=== PATIENT | female | born 1980 | race Hispanic/Latino ===

== ENCOUNTER 2023-02-06 06:46 | Day surgery (SDC) | payer MEDICAID ==
[2023-01-31 12:00] LABS: BASOPHILS # (AUTO) 0.02 K/uL (0.00-0.20); BASOPHILS % (AUTO) 0.3 % (0.0-5.0); EOSINOPHILS # (AUTO) 0.03 K/uL (0.00-0.70); EOSINOPHILS % (AUTO) 0.4 % (0.0-8.0); HEMATOCRIT 39.8 % (36-48); IMMATURE GRANULOCYTE ABSOLUTE 0.02 K/uL (0-1); LYMPHOCYTES # (AUTO) 2.3 K/uL (1.0-4.8); LYMPHOCYTES % (AUTO) 32.9 % (21.0-51.0); MEAN CORPUSCULAR HEMOGLOBIN 32.1 pg (27.0-33.0); MEAN CORPUSCULAR HGB CONC 34.4 g/dL (32.0-36.0); MEAN CORPUSCULAR VOLUME 93.2 fL (79-99); MONOCYTES # (AUTO) 0.5 K/uL (0.1-1.0); MONOCYTES % (AUTO) 7.4 % (3.0-13.0); NEUTROPHILS % (AUTO) 58.7 % (40.0-77.0); PLATELET COUNT (AUTO) 247 K/uL (130-400); RED BLOOD CELL COUNT(AUTO) 4.27 MIL/uL (4.00-5.50); RED CELL DISTRIBUTION WIDTH 12.6 % (11.0-15.5); WHITE BLOOD COUNT (AUTO) 6.9 K/uL (4.8-10.8)
[2023-01-31 12:09] LABS: APPEARANCE,URINE CLEAR (CLEAR); BILIRUBIN,URINE NEGATIVE (NEGATIVE); COLOR,URINE LIGHT-YELLOW (YELLOW); GLUCOSE, URINE (UA) NEGATIVE (NEGATIVE); KETONES,URINE NEGATIVE (NEGATIVE); LEUKOCYTE ESTERASE ,URINE 25 Leu/uL (NEGATIVE); NITRATE,URINE NEGATIVE (NEGATIVE); OCCULT BLOOD,URINE NEGATIVE (NEGATIVE); PROTEIN,URINE NEGATIVE (NEGATIVE); UROBILINOGEN,URINE 0.2 mg/dL (0.2-1.0)
[2023-01-31 12:20] LABS: INR < 0.93 (0.85-1.15); PROTHROMBIN TIME 10.5 SEC (9.6-11.6)
[2023-01-31 12:22] LABS: PARTIAL THROMBOPLASTIN TIME 31.2 SEC (26.3-35.5)
[2023-01-31 12:27] LABS: CREATININE 0.9 mg/dL (0.5-1.5); POTASSIUM 3.9 mmol/L (3.5-5.1)
[2023-01-31 12:32] LABS: ADD UA MICROSCOPIC YES
[2023-01-31 12:43] VITALS: BP 124/65; PULSE 77; RESP 19
[2023-01-31 13:28] LABS: RBC,URINE 0-1 /HPF (0-1); SQUAMOUS EPITHELIAL CELL,UR FEW /HPF (0-2)
[~2023-02-06] VITALS: Ht 165.1 cm; Wt 88.1 kg
[2023-02-06] VITALS (18 sets, daily range): BP systolic 104–135; BP diastolic 59–85; PULSE 70–98; RESP 15–19
[~2023-02-06 06:46] MED LIST: BENTROPINE PO; BUPR100T13 PO; DOXE25CA3 PO; HYDROXYPAM PO; RISP4TAB73 PO
[2023-02-06] MEDS ORDERED: CEFAZOLIN SODIUM 2 GM VIAL ONE (07:34)
[2023-02-06] MEDS ORDERED: GENTAMICIN 80 MG/NS 100 ML PB 100 ML IV ONE (07:34)
[2023-02-06] MEDS ORDERED: LACTATED RINGERS 1000ML 1,000 ML IV ONE (07:34)
[2023-02-06] MEDS ORDERED: FENTANYL CITRATE PF 50 MCG/1 ML 5ML AMP IV ONE ×2 (10:27→11:29)
[2023-02-06] MEDS ORDERED: MIDAZOLAM HCL 1 MG/ML 5ML VIAL ONE (10:30)
[2023-02-06] MEDS ORDERED: KETAMINE 50MG/ML SYRINGE 50 MG/ML DISP.SYRIN ONE (10:31)
[2023-02-06] MEDS ORDERED: CEFAZOLIN SODIUM 1 GM VIAL ONE (10:44)
[2023-02-06] MEDS ORDERED: LIDOCAINE 2%-EPI 1:200,000 20 ML VIAL IJ ONE ×2 (10:45→10:50)
[2023-02-06] MEDS ORDERED: ESTROGENS,CONJUGATED 0.625 MG/GM 42.5 GM VAG CRM VG ONE ×2 (10:46→10:54)
[2023-02-06] MEDS ORDERED: CEFAZOLIN SODIUM 2 GM VIAL IVPB ONE (10:52)
[2023-02-06] MEDS ORDERED: CEFAZOLIN SODIUM 1 GM VIAL IVPB ONE (10:53)
[2023-02-06] MEDS ORDERED: SUCCINYLCHOLINE 200MG/10ML SYR ONE (11:22)
[2023-02-06] MEDS ORDERED: LIDOCAINE PF 100MG/5ML (2%) SYRINGE 5ML ONE (11:22)
[2023-02-06] MEDS ORDERED: DEXAMETHASONE SOD PHOSPHATE 10MG/ML 1ML VIAL ONE (11:22)
[2023-02-06] MEDS ORDERED: PROPOFOL 10 MG/ML 20ML VIAL IV ONE (11:23)
[2023-02-06] MEDS ORDERED: NEOSTIGMINE 5MG/5ML SYR IV ONE (11:23)
[2023-02-06] MEDS ORDERED: GLYCOPYRROLATE 1 MG/5 ML SYRINGE ONE (11:23)
[2023-02-06] MEDS ORDERED: ONDANSETRON 4MG INJ ONE (11:23)
[2023-02-06] MEDS ORDERED: ROCURONIUM 10MG/1ML SYR 10 MG/ML ML ONE (11:24)
[2023-02-06] MEDS ORDERED: MEPERIDINE-PF 25 MG/ML SYG ONE (11:38)
[2023-02-06] MEDS ORDERED: KETOROLAC 30MG VIAL (30MG/ML) ONE (11:38)
[2023-02-06] MEDS ORDERED: SUGAMMADEX SODIUM 200 MG/2 ML VIAL IV ONE (11:57)
== END 2023-02-06 13:45 | disposition home or self-care (01) ==
LOC: DAH 06:46
PROVIDERS: ATTEND Urology
DX: N39.3 Stress incontinence (female) (male) (principal); R39.198 Other difficulties with micturition; F32.A Depression, unspecified; F20.9 Schizophrenia, unspecified; E66.9 Obesity, unspecified; Z79.899 Other long term (current) drug therapy; Z79.01 Long term (current) use of anticoagulants; Z98.51 Tubal ligation status
CPT/HCPCS: 80048; 84703; 85025; 85610; 85730; 87088; 81001; 36415; 57288; A6260; A4663; J7030; A4215 ×2; A4452; A4344; C1771; J7120; J3010 ×2; J0690 ×4; J0330; J3490 ×6; J1100; J2710; J2250; J2405; J1885; J2175; J1580; A4649; A4930; A4223; A4222; A4221; A4600; J2001; J2704

== ENCOUNTER → 2023-05-27 | Outpatient (CLI) | payer MEDICAID | END | disposition home or self-care (01) | LOC: RAH 16:29 | PROVIDERS: ATTEND Internal Medicine Gastroenterology | DX: R10.84 Generalized abdominal pain (principal); R11.2 Nausea with vomiting, unspecified | CPT/HCPCS: 74018 ==

== ENCOUNTER → 2023-07-25 | Outpatient (CLI) | payer MEDICAID | END | disposition home or self-care (01) | LOC: RAH 07-21 07:01 | PROVIDERS: ATTEND Internal Medicine Gastroenterology | DX: R14.0 Abdominal distension (gaseous) (principal); R11.2 Nausea with vomiting, unspecified | CPT/HCPCS: 78264; A9541 ==

== ENCOUNTER → 2023-08-19 | Outpatient (CLI) | payer MEDICAID ==
[~2023-08-19] MED LIST changes: -RISP4TAB73 PO; +RISP4TAB94 PO
== END | disposition home or self-care (01) ==
LOC: RAH 09:52
PROVIDERS: ATTEND Internal Medicine Gastroenterology
DX: K44.9 Diaphragmatic hernia without obstruction or gangrene (principal); R10.84 Generalized abdominal pain; K31.89 Other diseases of stomach and duodenum
CPT/HCPCS: 74240

== ENCOUNTER → 2023-11-12 | Outpatient (CLI) | payer MEDICAID ==
[~2023-11-12] MED LIST changes: +IOHEXOL 350 MG/ML 100ML INFUS..BTL IV ONE
== END | disposition home or self-care (01) ==
LOC: RAH 09:10
PROVIDERS: ATTEND Internal Medicine Gastroenterology
DX: N32.89 Other specified disorders of bladder (principal); M47.815 Spondylosis without myelopathy or radiculopathy, thoracolumbar region; R10.30 Lower abdominal pain, unspecified; I70.90 Unspecified atherosclerosis; Z98.82 Breast implant status
CPT/HCPCS: 74178; Q9967

== ENCOUNTER 2024-03-04 09:36 | Inpatient (IN) | payer MEDICAID ==
[2024-03-01 12:49] LABS: BASOPHILS # (AUTO) 0.01 K/uL (0.00-0.20); BASOPHILS % (AUTO) 0.2 % (0.0-5.0); HEMATOCRIT 39.8 % (36-48); IMMATURE GRANULOCYTE ABSOLUTE 0.01 K/uL (0-1); LYMPHOCYTES # (AUTO) 1.9 K/uL (1.0-4.8); LYMPHOCYTES % (AUTO) 30.7 % (21.0-51.0); MEAN CORPUSCULAR HEMOGLOBIN 33.4 pg (27.0-33.0); MEAN CORPUSCULAR HGB CONC 33.7 g/dL (32.0-36.0); MEAN CORPUSCULAR VOLUME 99.3 fL (79-99); MONOCYTES # (AUTO) 0.4 K/uL (0.1-1.0); MONOCYTES % (AUTO) 5.5 % (3.0-13.0); NEUTROPHILS % (AUTO) 63.4 % (40.0-77.0); PLATELET COUNT (AUTO) 208 K/uL (130-400); RED BLOOD CELL COUNT(AUTO) 4.01 MIL/uL (4.00-5.50); RED CELL DISTRIBUTION WIDTH 13.2 % (11.0-15.5); WHITE BLOOD COUNT (AUTO) 6.3 K/uL (4.8-10.8)
[2024-03-01 13:05] LABS: CREATININE 0.8 mg/dL (0.5-1.0); POTASSIUM 4.6 mmol/L (3.5-5.1)
[2024-03-01 13:42] VITALS: BP 115/61; PULSE 86; RESP 19; TEMP 97.9
[~2024-03-04] VITALS: Ht 165.1 cm; Wt 78.0 kg
[2024-03-04] VITALS (20 sets, daily range): BP systolic 110–141; BP diastolic 62–91; PULSE 74–98; RESP 15–20; TEMP 96.4–98.7; O2SAT 98
[~2024-03-04 09:36] MED LIST changes: +ATOR10TA69 PO; -BENTROPINE PO; +BENZ1TAB83 PO; -BUPR100T13 PO; +CLON1TAB12 PO; -DOXE25CA3 PO; -HYDROXYPAM PO; +IBUP-2077 PO; -IOHEXOL 350 MG/ML 100ML INFUS..BTL IV ONE; +OLAN15TA31 PO; +PERP8TAB6 PO; -RISP4TAB94 PO; +TERB250T89 PO
[2024-03-04] MEDS: ceFAZolin SODIUM 2 GM VIAL ONE (12:32)
[2024-03-04] MEDS: LACTATED RINGERS 1000ML 1,000 ML IV ONE (12:32)
[2024-03-04] MEDS ORDERED: BUPIvacaine/PF 0.25% 30ML VIAL IJ ONE (13:47)
[2024-03-04] MEDS ORDERED: FENTanyl CITRate PF 50 MCG/1 ML 2ML VIAL ONE (13:48)
[2024-03-04] MEDS ORDERED: MIDAZOLAM HCL 1 MG/ML 5ML VIAL ONE (13:48)
[2024-03-04] MEDS ORDERED: ketaMINE 50MG/ML SYRINGE 50 MG/ML DISP.SYRIN ONE (13:49)
[2024-03-04] MEDS ORDERED: rocuRONium bROMide 10MG/1ML 5ML VL ONE ×2 (13:50→14:33)
[2024-03-04] MEDS ORDERED: ondanSETRON 4MG INJ ONE (13:50)
[2024-03-04] MEDS ORDERED: proPOFol 10 MG/ML 20ML VIAL IV ONE (13:50)
[2024-03-04] MEDS ORDERED: LIDOCAINE PF 100MG/5ML (2%) SYRINGE 5ML ONE (13:50)
[2024-03-04] MEDS: ceFAZolin SODIUM 2 GM VIAL IVPB ONE (14:00)
[2024-03-04] MEDS ORDERED: GLYCOPYRROLATE 0.2 MG/ML 5 ML VIAL ONE (15:03)
[2024-03-04] MEDS ORDERED: ondanSETRON 4MG INJ IVP PRN (15:30)
[2024-03-04] MEDS ORDERED: PROCHLORPERAZINE 10MG/2ML INJ IV PRN (15:30)
[2024-03-04] MEDS: ENOXAPARIN SODIUM 30 MG/0.3 ML SQ SCH (15:30)
[2024-03-04] MEDS: FENTanyl CITRate PF 50 MCG/1 ML 2ML VIAL ONE (15:48)
[2024-03-04] MEDS: MEPERIDINE-PF 25 MG/ML SYG ONE (15:51)
[2024-03-04] MEDS: LACTATED RINGERS 1000ML 1,000 ML IV SCH (17:47)
[2024-03-04] MEDS: ketOROlac 30MG VIAL (30MG/ML) IV PRN (17:47)
[2024-03-04] MEDS: hydroMORPHone 1 MG INJ IVP PRN (19:18)
[2024-03-04] MEDS: FAMOTIDINE 20MG VIAL IV SCH (20:17)
[2024-03-04] MEDS: HYDROcod/acetaMINOPHEN 7.5/325 MG 15 ML UDCUP PO PRN (20:36)
[2024-03-05 04:00] VITALS: BP 119/79; PULSE 81; RESP 16; TEMP 98
[2024-03-05 08:00] VITALS: BP 116/78; PULSE 88; RESP 18; TEMP 97.4; O2SAT 98
[2024-03-05] MEDS ORDERED: hydroMORPHone 0.5 MG SYG (0.5MG/0.5ML) IVP PRN (11:00)
[2024-03-05 11:40] VITALS: BP 102/67; PULSE 89; RESP 18; TEMP 98.2
[2024-03-05 16:00] VITALS: BP 121/66; PULSE 91; RESP 18; TEMP 98.2
[2024-03-05 20:00] VITALS: BP_SYST 117; BP_SYST 123; BP_DIAS 77; BP_DIAS 81; PULSE 88; PULSE 91; RESP 16; RESP 18; TEMP 98.6
[2024-03-05 21:35] VITALS: O2SAT 98
[2024-03-06] VITALS: BP 117/81; PULSE 91; RESP 16; TEMP 98.5
[2024-03-06 04:00] VITALS: BP 135/90; PULSE 100; RESP 20; TEMP 97.8
[2024-03-06] MEDS: ketOROlac 15MG/ML VIAL (15MG/ML) IV PRN (06:39)
[2024-03-06 08:00] VITALS: BP 117/71; PULSE 94; RESP 18; TEMP 98.4; O2SAT 98
[2024-03-06] MEDS: SIMETHICONE 80 MG TAB.CHEW PO PRN (11:35)
[2024-03-06 12:00] VITALS: BP 108/72; PULSE 98; TEMP 98.3
== END 2024-03-06 15:00 | disposition home or self-care (01) | DRG 220 ==
LOC: DAH 09:36 → DAHIP 09:37 → EDSTATUS 13:00 → 4CH 17:10
PROVIDERS: ADMIT Surgery; ATTEND Surgery
PROC: 0DV44ZZ Restriction of Esophagogastric Junction, Percutaneous Endoscopic Approach (ICD-10-PCS; 2024-03-04)
PROC: 0BUT4JZ Supplement Diaphragm with Synthetic Substitute, Percutaneous Endoscopic Approach (ICD-10-PCS; principal; 2024-03-04 13:56)
PROC: 8E0W4CZ Robotic Assisted Procedure of Trunk Region, Percutaneous Endoscopic Approach (ICD-10-PCS; 2024-03-04 13:56)
PROC: 0DJ08ZZ Inspection of Upper Intestinal Tract, Via Natural or Artificial Opening Endoscopic (ICD-10-PCS; 2024-03-04 13:56)
DX: K44.9 Diaphragmatic hernia without obstruction or gangrene (principal); E66.9 Obesity, unspecified; R06.6 Hiccough; Z68.28 Body mass index [BMI] 28.0-28.9, adult
CPT/HCPCS: 36415; 43235; 80048; 81025; 85025; 86850; 86900; 86901; 93005; G0378; J1171; J1650; J1885; J2003; J2175; J2250; J2405; J2704; J3010; J3490; J7120; A4215; A4216; A4221; A4222; A4223; A4600; A4663; A4930; A6260; C1781; G8980-CI; G8983-CI; J0665; J0690